=== PATIENT | male | born 1985 | race Caucasian/White ===

== ENCOUNTER 2020-06-18 04:56 | Emergency (ER) | payer SELFPAY ==
[~2020-06-18] VITALS: Ht 177.8 cm; Wt 90.9 kg
[2020-06-18] MEDS ORDERED: acetaminophen 325mg tablet PO ONE (05:25)
[2020-06-18] MEDS ORDERED: ibuprofen tablet 400 MG TABLET PO ONE (05:25)
[2020-06-18] MEDS ORDERED: ibuprofen 200mg tablet PO ONE (05:30)
[2020-06-18 05:33] VITALS: BP 127/85
== END 2020-06-18 05:34 | disposition home or self-care (01) ==
LOC: ER 05:00
DX: M25.571 Pain in right ankle and joints of right foot (principal); Z59.0 Homelessness
CPT/HCPCS: 99283

== ENCOUNTER → 2020-11-16 | Emergency (ER) | payer MEDICAID ==
[~2020-11-16] VITALS: Ht 182.9 cm; Wt 75.0 kg
[~2020-11-16] MED LIST: LORazepam 2 mg/ml vial IM ONE; haloperidol lactate 5mg/ml inj IM ONE
[2020-11-16 01:49] VITALS: BP 136/92
== END ==
LOC: ER 01:48
DX: F23 Brief psychotic disorder (principal); F15.10 Other stimulant abuse, uncomplicated; Z59.0 Homelessness
CPT/HCPCS: 96372; 99284; J1630; J2060; 99283